=== PATIENT | female | born 1950 | race Hispanic/Latino ===

== ENCOUNTER → 2024-01-16 06:30 | Day surgery (SDC) | payer OTHER, SELFPAY ==
[2024-01-16 07:51] LABS: Glucose - Point of Care 130 mg/dl (70-99)
== END ==
LOC: GI 06:30
PROVIDERS: ATTENDING PHYSICIAN Internal Medicine Gastroenterology
DX: R19.4 Change in bowel habit (principal); K57.30 Diverticulosis of large intestine without perforation or abscess without bleeding; K64.8 Other hemorrhoids; R13.10 Dysphagia, unspecified; K31.7 Polyp of stomach and duodenum; K31.89 Other diseases of stomach and duodenum; K63.5 Polyp of colon; R12 Heartburn; K29.50 Unspecified chronic gastritis without bleeding; K20.80 Other esophagitis without bleeding; K31.A19 Gastric intestinal metaplasia without dysplasia, unspecified site; Z87.11 Personal history of peptic ulcer disease
CPT/HCPCS: 45380; 43239; 88305; 82962; 88342

== ENCOUNTER 2024-01-19 17:51 | Emergency (ER) | payer OTHER, SELFPAY ==
[2024-01-19 17:58] VITALS: BP 130/82
[2024-01-19] MEDS: NORCO 5/325 1 TABLET PO (19:14)
[2024-01-19] MEDS: DECADRON 10 MG PO (19:15)
--- NOTE | 2024-01-19 19:15 | ED.MUSCINJ ---
HPI-Injury
General
Chief Complaint: Musculo-Skeletal Complaint
Source: patient
Exam Limitations: none
Time Seen by Provider: 01/19/24 18:22
Nursing documentation reviewed up to this point in time: agreed with
Travel History
Have you had any contact with someone who has COVID-19?: No
Do you have any symptoms of coronavirus? Fever > 100 degrees, chills, cough, shortness of breath, sore throat, loss of taste or smell, muscle aches, or headache?: No
History of Present Illness-Injury
Initial Injury comments:
73-year-old female with history of NIDDM, HLD presents with right shoulder pain. She states she had an endoscopy and a colonoscopy 3 days ago and when she got home that night she developed right shoulder pain that has become increasingly worse over
the past 3 days. Cannot lift arm due to pain.
Past History
Past History
ED Past Medical History: NIDDM
ED Past Surgical History: Other (Repair of rectal and bladder prolapse, 'tummy tuck surgery which getting go correctly')
Social History
Tobacco: Non-smoker
Alcohol: None
Drug: None
Living: with family
Employment: Employed
Review of Systems
Review of Systems
Allergies reviewed?: Yes
All Other Systems: ROS reviewed and negative except as documented in HPI and ROS
Musculoskeletal: Reports other (Right shoulder pain)
Skin: Reports no symptoms
Neurological: Denies weakness or numbness
Musculoskeletal Injury Exam
Musculoskeletal Injury Exam
Right Shoulder:
Pain with Movement?: Moderate
Tender to palpation?: Moderate
Soft tissue swelling?: None
Range of motion: Limited
Distal skin color and temperature: normal-warm & good color
Capillary Refill: normal
Normal distal neurovascular exam?: Yes
Phy Exam
Physical Exam
Physical Exam:
GENERAL: No acute distress. A&Ox3.
CONSTITUTIONAL: Afebrile.
RESPIRATORY: Regular respirations, nonlabored, lungs clear.
CARDIOVASCULAR: Regular rate and rhythm, no murmurs, no rubs.
MUSCULOSKELETAL: Moves with ease. Well perfused.
SKIN: Warm, dry, pink
PSYCH: Normal mood and affect. Well kept, interactive and appropriate
NEUROLOGIC: Awake, alert and oriented. No focal neurological deficits
Injury Course
Orders/Labs/Results
Orders:
Orders
01/19/24 18:02
CR Shoulder - Right Min 2 View Urgent
Reason For Exam: pain no injury
01/19/24 19:07
Sling Right-Treatment ONCE
Dexamethasone [Decadron] 10 mg PO NOW STA
Hydrocodone 5/APAP 325 [Pataskala 5/325] 1 tablet PO NOW STA
MDM/Problems Addressed
Differential Diagnosis Includes:
bursitis, calcific bursitis, arthritis
MDM/Problems Addressed:
73-year-old female with history of NIDDM, HLD presents with right shoulder pain. She states she had an endoscopy and a colonoscopy 3 days ago and when she got home that night she developed right shoulder pain that has become increasingly worse over
the past 3 days. Cannot lift arm due to pain.
01/19/2024 1918 PM
Right shoulder x-ray read by this examiner initially: No acute bony abnormality. There are 2 large areas of calcification in the area of the bursal sac.
Sling applied, pain medication and prednisone taper sent to her pharmacy
Referred to orthopedics for follow-up.
*Critical Care Note
Total Time (30-74mins, 75-104mins- exclusive of procedures): Not Applicable
ED Attending Note
-
Portions of this chart may have been created with voice recognition software.� Occasional wrong word or��sound alike� substitutions may have occurred due to the inherent limitations of voice recognition software.
Discharge Plan
Departure
Patient Disposition: Home (Routine Discharge)
Date of Disposition: 01/19/24
Time of Disposition: 19:22
Patient with high blood pressure during this ER visit?: No
Condition: Good
Discharge Problem:
Calcific shoulder tendinitis
Instructions: Frozen Shoulder (DC), Shoulder Tendinopathy (DC), Frozen Shoulder Exercises
Prescriptions:
New
prednisone 20 mg tablet
40 mg PO DAILY Qty: 8 0RF
hydrocodone-acetaminophen 5-325 mg tablet
1 tab PO Q8H PRN (Reason: Pain) Qty: 8 0RF
No Action
omeprazole 40 MG capsule,delayed release(DR/EC)
40 mg PO DAILY
sitagliptin phos-metformin [Janumet XR] 1 EACH tablet, ER multiphase 24 hr
1 ea PO DAILY
empagliflozin [Jardiance] 10 MG tablet
10 mg PO DAILY
Referrals:
Andreas Cornell MD [Active] - Next open appointment
Activity Restrictions/Additional Instructions:
As we discussed, I sent a prescription to your pharmacy for prednisone to take 40 mg a day for 4 days to see if it helps with the inflammation and pain.
Prednisone is a steroid that can make your blood sugar go up so check your blood sugar at least once a day and if it goes above 200, stop the steroid
Use Ibuprofen or Tylenol for mild to moderate pain and use the Pataskala (Hydrocodone) if needed for worse pain.
Call the orthopedic doctors office tomorrow make a next available appointment.
Wear the sling for no more than 2-3 days until the medication helps some of the pain.
You should move the shoulder more and more as comfort permits to avoid a 'frozen shoulder. '
Heating pad may help the pain.
Interventions
Interventions:
*Risk Screen - Suicide Last Done: 01/19/24 17:58
*General Assessment Last Done: 01/19/24 18:21
*Neglect/Abuse Screening Last Done: 01/19/24 17:58
*ED COVID-19 Vaccine History Last Done: 01/19/24 17:58
*Nursing Disposition Last Done: 01/19/24 19:34
ED-Musculoskeletal Assessment Last Done: 01/19/24 18:19
Discharge Date and Time
Discharge Date/Time: 01/19/24 19:36
[2024-01-19 19:24] VITALS: BP 137/57
[2024-01-19 19:34] VITALS: BP 137/57
== END 2024-01-19 19:36 | disposition home or self-care (01) ==
LOC: EMR 17:51
PROVIDERS: EMERGENCY PHYSICIAN Emergency Medicine; FAMILY PHYSICIAN Family Medicine
DX: M75.31 Calcific tendinitis of right shoulder (principal); E11.9 Type 2 diabetes mellitus without complications; E78.5 Hyperlipidemia, unspecified
CPT/HCPCS: 99283; 73030

== ENCOUNTER → 2024-06-11 08:06 | Outpatient (REF) | payer OTHER, SELFPAY | LOC: WDC 08:06 | PROVIDERS: ATTENDING PHYSICIAN Family Medicine | DX: Z12.31 Encounter for screening mammogram for malignant neoplasm of breast (principal) | CPT/HCPCS: 77063; 77067 ==

== ENCOUNTER → 2024-08-18 13:50 | Outpatient (REF) | payer OTHER, SELFPAY | LOC: RAD 13:50 | PROVIDERS: ATTENDING PHYSICIAN Internal Medicine Interventional Cardiology; FAMILY PHYSICIAN Family Medicine | DX: I21.02 ST elevation (STEMI) myocardial infarction involving left anterior descending coronary artery (principal); I73.9 Peripheral vascular disease, unspecified | CPT/HCPCS: 93922; 93925 ==

== ENCOUNTER → 2025-08-02 06:41 | Outpatient (REF) | payer OTHER, SELFPAY | LOC: RAD 06:41 | PROVIDERS: ATTENDING PHYSICIAN Surgery Vascular Surgery; FAMILY PHYSICIAN Family Medicine | DX: I73.9 Peripheral vascular disease, unspecified (principal) | CPT/HCPCS: 93922 ==

== ENCOUNTER 2025-09-10 15:23 | Emergency (ER) | payer OTHER, SELFPAY ==
[2025-09-10 15:32] VITALS: BP 156/76
--- NOTE | 2025-09-10 16:48 | ED.GENMED ---
History of Present Illness
General
Chief Complaint: Musculo-Skeletal Complaint
Source: patient and family
Exam Limitations: none
Time Seen by Provider: 09/10/25 16:19
History of Present Illness
History of Present Illness:
Patient is a 75-year-old female with past medical history of hypertension, hyperlipidemia, diabetes, who presents to the emergency department from home accompanied by her [id number] for evaluation of right-sided neck pain that started 2 days
ago. Patient denies any known injury or trauma to the area, states that she woke up with it one morning. Patient reports that the pain does extend into her shoulder a bit. Patient reports that the pain is worse when she turns her neck to the
right. Patient reports that she had a few seconds of numbness and tingling to the right hand today. She reports that she shook her hand out and it resolved. Patient denies any recent fevers or chills. Patient denies any headache or dizziness.
Patient denies any vision changes such as blurry vision or double vision. Patient denies any chest pain or shortness of breath. Patient denies any abdominal pain, nausea, vomiting. Patient denies any other numbness, weakness, or tingling.
Patient reports that she took Tylenol this morning around 8 AM without improvement in her symptoms. Patient denies taking anything else for her pain. She states that she has been told in the past not to take NSAIDs.
Past History
Past History
ED Past Medical History: NIDDM
ED Past Surgical History: Other (Repair of rectal and bladder prolapse, 'tummy tuck surgery which getting go correctly')
Social History
Tobacco: Non-smoker
Alcohol: None
Drug: None
Living: with family
Employment: Employed
Review of Systems
Review of Systems
All Other Systems: Not applicable
Constitutional: Reports no symptoms
EENT: Reports no symptoms
Respiratory: Reports no symptoms
Cardiac: Reports no symptoms
ABD/GI: Reports no symptoms
: Reports no symptoms
Musculoskeletal: Reports neck pain (right sided)
Skin: Reports no symptoms
Neurological: Reports numbness (brief; to the right hand, none currently); Denies dizzy, headache or weakness
Endocrine: Reports no symptoms
Hematologic/Lymphatic: Reports no symptoms
Psychiatric: Reports no symptoms
Phy Exam
General Physical Exam
General Presentation: well appearing and no apparent distress
General Skin: warm and dry
General Habitus: normal
General Mental: alert
General Hydration: appears well hydrated
ENT Exam
ENT Exam: EOMI, pharynx normal, neck supple and normocephalic
Eye Exam
Eye Exam: PERRL, cornea clear and conjunctiva normal
Cardiovascular Exam
Cardiovascular Exam: regular rate/rhythm, no edema, no murmur and normal peripheral pulses
Pulmonary Exam
Pulmonary Exam: lungs clear, no respiratory distress, no rales, no crackles, no rhonchi, no stridor, no wheezing and no cough
Neurological Exam
Neurological Exam: alert, oriented x3, CN II-XII intact, no motor deficits, no sensory deficits and speech normal
Musculoskeletal Exam
Musculoskeletal Exam: neck pain ((+)ttp and hypertonicity to the right trapezius, normal ROM but with pain to the right)
Skin Exam
Skin Exam: normal color, warm/dry, no rash and no petechia
Psychiatric Exam
Psychiatric Exam: normal mood/affect
Course
Orders/Labs/Results
Orders:
Orders
09/10/25 17:23
Acetaminophen [Tylenol] 650 mg PO NOW STA
Cyclobenzaprine HCl [Flexeril] 10 mg PO NOW STA
Lidocaine [Lidocaine 4% Patch] 1 patch TOPICAL ONCE STA
Apply Lidocaine patch(s) to:: right neck
Vital Signs
Initial and Last Documented VS:
Initial Vital Signs
Temp Pulse Resp BP Pulse Ox
97.7 F 79 18 156/76 100
09/10/25 15:32 09/10/25 15:32 09/10/25 15:32 09/10/25 15:32 09/10/25 15:32
Last Documented Vital Signs
Temp Pulse Resp BP Pulse Ox
97.7 F 79 18 156/76 100
09/10/25 15:32 09/10/25 15:32 09/10/25 15:32 09/10/25 15:32 09/10/25 16:48
*Pulse Oximetry
SaO2: 100
Patient hypoxic: not evaluated
*Critical Care Note
Total Time (30-74mins, 75-104mins- exclusive of procedures): Not Applicable
Update Note
Update Note:
75-year-old female presents with atraumatic right-sided neck pain that started 2 days ago. Patient reports that she woke up with it that morning. Patient reports taking Tylenol on one occasion this morning without improvement in her symptoms.
Patient had a very brief episode of some numbness and tingling in her right hand this morning. She shook her arm out and it resolved. Patient denies any other numbness, weakness, tingling. On arrival, patient is moderately hypertensive, afebrile.
On examination, the patient is very well-appearing, she is in no acute distress, she has hypertonicity and tenderness to palpation over the right trapezius with full range of motion of her neck, she has no neurological deficits. I explained to the
patient that there is no evidence that she is having a stroke today, she was reassured. I advised the patient that I believe she is suffering from a muscle spasm. Patient is not permitted to take NSAIDs therefore we will have her continue to take
Tylenol. Will add on a short course of cyclobenzaprine. Patient and her [id number] made aware that this medication may make her sleepy and therefore she should not drive or operate heavy machinery after taking it. She will also be prescribed
lidocaine patches. She was educated on the use of moist heat and gentle stretching exercises. Patient is safe for discharge home with outpatient PCP follow-up to ensure resolution of her symptoms along with return precautions. Patient and her
[id number] expressed understanding of the plan and agreed.
ED Attending Note
-
Portions of this chart may have been created with voice recognition software.� Occasional wrong word or��sound alike� substitutions may have occurred due to the inherent limitations of voice recognition software.
Discharge Plan
Departure
Patient Disposition: Home (Routine Discharge)
Date of Disposition: 09/10/25
Time of Disposition: 17:25
Patient with high blood pressure during this ER visit?: Yes
Condition: Good
Covid-19: Not Applicable
Discharge Problem:
Spasm of right trapezius muscle
Instructions: Muscle Strain (DC), Muscle spasm - ED (DC)
Prescriptions:
New
lidocaine 5 % adhesive patch,medicated
1 patch topical DAILY PRN (Reason: pain) 30 Days Qty: 30 0RF
cyclobenzaprine 10 mg tablet
10 mg PO BIDPRN PRN (Reason: muscle spasm) 3 Days Qty: 9 0RF
No Action
omeprazole 40 MG capsule,delayed release(DR/EC)
40 mg PO DAILY
sitagliptin phos-metformin [Janumet XR] 1 EACH tablet, ER multiphase 24 hr
1 ea PO DAILY
empagliflozin [Jardiance] 10 MG tablet
10 mg PO DAILY
prednisone 20 mg tablet
40 mg PO DAILY Qty: 8 0RF
hydrocodone-acetaminophen 5-325 mg tablet
1 tab PO Q8H PRN (Reason: Pain) Qty: 8 0RF
Referrals:
Autumn Flowers DO [Family Provider, Family Practice] - Follow up in 2-3 days
Referral Note: Call for follow-up appointment
Activity Restrictions/Additional Instructions:
You were seen in the emergency department for evaluation of right neck pain. Your examination is consistent with a spasm of the muscle that runs from the base of your skull to the right shoulder. We recommend that you take Tylenol 650 mg every 4-6
hours if needed for pain, not to exceed 3000 mg in a 24-hour period. You may also take the muscle relaxant that was prescribed today however this may make you drowsy therefore do not drive or operate heavy machinery after taking it. You may use
the numbing pain patches that were prescribed today as well. Warm compresses to the area as well as gentle stretching exercises may be beneficial. Please follow-up with your primary care provider within 3 to 4 days to ensure improvement in your
symptoms. Please return to the emergency department if you develop severe headache, dizziness, vision changes, chest pain, shortness of breath, abdominal pain, vomiting, or for any other worsening or concerning symptoms.
Interventions
Interventions:
*Risk Screen - Suicide Last Done: 09/10/25 15:33
*General Assessment Last Done: 09/10/25 17:56
*Neglect/Abuse Screening Last Done: 09/10/25 17:56
*Nursing Disposition Last Done: 09/10/25 17:56
ED-Musculoskeletal Assessment Last Done: 09/10/25 16:55
Discharge Date and Time
Discharge Date/Time: 09/10/25 17:56
Print Language: SLOVAK
[2025-09-10] MEDS: TYLENOL 650 MG PO (17:47)
[2025-09-10] MEDS: LIDOCAINE 4% PATCH 1 PATCH TOPICAL (17:48)
[2025-09-10] MEDS: FLEXERIL 10 MG PO (17:48)
== END 2025-09-10 17:56 | disposition home or self-care (01) ==
LOC: EMR 15:23
PROVIDERS: EMERGENCY PHYSICIAN Student in an Organized Health Care Education/Training Program; FAMILY PHYSICIAN Family Medicine
DX: M62.838 Other muscle spasm (principal); I10 Essential (primary) hypertension; E11.9 Type 2 diabetes mellitus without complications; E78.00 Pure hypercholesterolemia, unspecified
CPT/HCPCS: 99282

== ENCOUNTER → 2025-10-22 07:58 | Outpatient (REF) | payer OTHER, SELFPAY | LOC: HWRAD 07:58 | PROVIDERS: ATTENDING PHYSICIAN Family Medicine | DX: Z12.31 Encounter for screening mammogram for malignant neoplasm of breast (principal); M81.0 Age-related osteoporosis without current pathological fracture | CPT/HCPCS: 77063; 77067; 77080 ==